=== PATIENT | male | born 1950 | race Caucasian/White ===

== ENCOUNTER 2018-09-06 11:23 | Outpatient (CLI) | payer MEDICARE | END 2018-09-06 11:24 | disposition home or self-care (01) | LOC: RT 11:23 | PROVIDERS: ATTEND Internal Medicine Cardiovascular Disease | DX: I48.91 Unspecified atrial fibrillation (principal) | CPT/HCPCS: 93005 ==

== ENCOUNTER 2019-05-05 13:43 | Outpatient (CLI) | payer MEDICARE | END 2019-05-05 13:44 | disposition short-term general hospital (02) | LOC: EMS 13:43 | PROVIDERS: ATTEND Surgery | DX: R10.13 Epigastric pain (principal); R61 Generalized hyperhidrosis; R11.10 Vomiting, unspecified | CPT/HCPCS: A0425; A0427 ==

== ENCOUNTER → 2022-08-17 | Outpatient (CLI) | payer MEDICARE | END | disposition short-term general hospital (02) | LOC: EMS 13:14 | DX: R07.9 Chest pain, unspecified (principal); R10.10 Upper abdominal pain, unspecified; I48.91 Unspecified atrial fibrillation; R11.2 Nausea with vomiting, unspecified | CPT/HCPCS: A0425; A0427 ==

== ENCOUNTER 2022-09-04 18:30 | Outpatient (CLI) | payer MEDICARE | END 2022-09-04 18:31 | disposition short-term general hospital (02) | LOC: EMS 18:30 | DX: R07.89 Other chest pain (principal); R11.2 Nausea with vomiting, unspecified; I48.91 Unspecified atrial fibrillation | CPT/HCPCS: A0425; A0427 ==

== ENCOUNTER 2022-09-14 15:30 | Outpatient (CLI) | payer MEDICARE ==
--- NOTE | 2022-09-14 17:34 | XRAY Report ---
PROCEDURE: Knee 3 View BILAT INDICATIONS: XRAY TECHNIQUE: 3 views of the bilateral knee(s) were acquired. COMPARISON: None. FINDINGS: Bones: No fractures or dislocations. No suspicious bony lesions. Moderate tricompartmental osteoart hritis in right knee is seen most notably in lateral femoral tibial compartment with joint space narr owing, subchondral sclerosis and prominent marginal osteophyte formation. Mild tricompartmental osteo arthritis in left knee is also seen. No patellar subluxation. Soft tissues: Small bilateral suprapatellar joint effusion is seen. No suspicious soft tissue calci fications. IMPRESSION: Right worse than left bilateral tricompartmental osteoarthritis and small joint effusion as above. Reviewed by: Francisco J Rangel MD on 09/14/2022 5:33 PM PDT Approved by: Francisco J Rangel MD on 09/14/2022 5:33 PM PDT Station ID: [id number]
== END 2022-09-14 15:31 | disposition home or self-care (01) ==
LOC: DI.S 15:30
PROVIDERS: ATTEND Naturopath
DX: M17.0 Bilateral primary osteoarthritis of knee (principal); M25.462 Effusion, left knee; M25.461 Effusion, right knee

== ENCOUNTER 2025-01-12 21:21 | Observation (INO) ==
[2025-01-12 21:45] LABS: BASOPHILS % (AUTO) 0.1 %; EOSINOPHILS % (AUTO) 0.1 %; HCT - HEMATOCRIT 50.3 % (42.0-52.0); HGB - HEMOGLOBIN 17.3 g/dL (14.0-18.0); LYMPHOCYTES # (AUTO) 0.9 10^3/uL (1.5-3.5); MEAN CORPUSCULAR HEMOGLOBIN 30.4 pg (27.0-31.0); MEAN CORPUSCULAR HGB CONC 34.4 g/dL (32.0-36.0); MEAN CORPUSCULAR VOLUME 88.4 fL (80.0-94.0); MEAN PLATELET VOLUME 10.8 fL (7.4-11.4); MONOCYTES # (AUTO) 0.2 10^3/uL (0.0-1.0); MONOCYTES % (AUTO) 2.1 %; NEUTROPHILS # (AUTO) 6.6 10^3/uL (1.5-6.6); NEUTROPHILS % (AUTO) 85.2 %; PLT - PLATELET COUNT 163 10^3/uL (130-450); RED BLOOD COUNT 5.69 10^6/uL (4.70-6.10); RED CELL DISTRIBUTION WIDTH 13.6 % (12.0-15.0); WHITE BLOOD COUNT 7.8 x10^3/uL (4.8-10.8)
--- NOTE | 2025-01-12 21:54 | XRAY Report ---
PROCEDURE: XR Chest 1V INDICATIONS: chest pain TECHNIQUE: One view of the chest was acquired. COMPARISON: 11/26/2024. FINDINGS: Surgical changes and devices: None. Lungs and pleura: No pleural effusions or pneumothorax. Prominent interstitial markings. No consolid ation. Left costophrenic angle is not included within the [id number]. Mediastinum: Mediastinal contours appear normal. Heart size is normal. Bones and chest wall: No suspicious bony lesions. Overlying soft tissues appear unremarkable. IMPRESSION: Prominent interstitial markings may represent edema, recommend clinical correlation. Otherwise, no ac nightmute findings. Reviewed by: Brian Osorio MD on 01/12/2025 9:53 PM PST Approved by: Brian Osorio MD on 01/12/2025 9:53 PM PST Station ID: [id number]
[2025-01-12 22:03] LABS: ALBUMIN 4.2 g/dL (3.2-5.5); BILIRUBIN,TOTAL 0.8 mg/dL (0.2-1.0); CALCIUM 9.1 mg/dL (8.5-10.3); CREATININE 0.9 mg/dL (0.6-1.3); POTASSIUM 3.8 mmol/L (3.5-4.5); TOTAL PROTEIN 6.3 g/dL (6.4-8.9)
[2025-01-12 22:05] LABS: TROPONIN I HIGH SENSITIVITY 6.8 ng/L (2.3-19.7)
--- NOTE | 2025-01-12 22:12 | ED Physician Documentation ---
PD HPI CHEST PAIN Stated complaint Stated Complaint: CHEST PX Chief complaint Chief Complaint: Cardiac Additional information Additional information: LIANGA. HPI from EMS, patient. Patient called EMS tonight due to chest pain. Patient says he was at home at rest at approximately 7:30 PM tonight when the chest pain started without inciting event. Indicates chest pain is substernal without radiation, associate with nausea and vomiting. EMS found patient to be in atrial fibrillation with rapid ventricular response at approximately 150 to 160 bpm. Patient says the pain was initially 9 on a scale of 0-10 but by the time of my HPI he says it is down to a 5. EMS administered 4 mg IV Zofran with a subsequent repeat dose, 22 mg IV diltiazem, 2 mg morphine sulfate IV with a repeat dose, 3 and 24 mg aspirin p.o., and they applied 1 inch of Nitropaste the anterior chest wall. With these interventions, the heart rate has decreased to 1 teens to 120s although he is still in atrial fibrillation on ED arrival. Patient tells me he has a history of OK as well as pericarditis. He says that the pericarditis was the result of a failed attempt at ablation (to treat the atrial fibrillation). Patient was treated and released from this emergency department twice last month for similar symptoms. Patient expresses surprise that the morphine given en route did not eliminate his pain because, per patient, a single dose of morphine typically results his symptoms entirely. The patient tells me he is not on any medications except for metoprolol which she does not take on a consistent basis. When I ask him if he is on any blood thinners such as Xarelto or Eliquis, the patient tells me that his casino dealer told him many years ago that he did not need strong blood thinner and could just take aspirin, instead. Meds/Allgy Home Medications Ambulatory Orders Medication Instructions Recorded Confirmed rivaroxaban 10 mg tablet (Xarelto) 10 mg PO DAILY PRN AFIB 09/22/17 01/13/25 aspirin 81 mg tablet,delayed 81 mg PO DAILY 01/13/25 01/13/25 release (Adult Low Dose Aspirin) Allergies Allergies Allergy/AdvReac Type Severity Reaction Status Date / Time No Known Drug Allergies Allergy Verified 01/12/25 21:27 [facility] Active Problems All Active Problems (Updated 01/13/25 @ 04:47 by Shira Carreon, RN, BSN) Atrial fibrillation with RVR (Acute) Chest pain (Acute) Vomiting (Acute) Chest pain (Acute) Osteoarthritis of knees, bilateral (Acute) Social History Social History Smoking Status: Never smoker If you are a former smoker, when did you quit? (Date/Year): n/a Number of Years Smoked: 0 How many cigarettes a day do you smoke? (20 cigarettes=1 Pk): 0 Second hand tobacco smoke exposure: No Do you dip or chew tobacco?: No Do you vape?: No Patient requests smoking cessation consult: No Initiate information on smoking cessation: No Living arrangement: At home Living Condition: With spouse/s.o. and With family Relationship: Level: Independent Do you feel safe in your home environment?: Yes Suffered physical, verbal, emotional, or financial abuse?: No Substance Use: cannabis (any form) POLST Patient has POLST: No POLST Status: DNR Exam Constitutional normal general appearance, no apparent distress and alert Respiratory breath sounds equal bilaterally, clear to auscultation bilaterally, no wheezes and no rales Cardiovascular heart rate abnormal (tachycardic), rhythm abnormal (irregular) and no murmur Gastrointestinal abdomen soft to palpation, nontender to palpation, nondistended and normoactive bowel sounds Psychiatry mental status grossly normal and oriented x3 Results Vitals Vitals: Vital Signs - 24 hr 01/12/25 21:25 01/12/25 21:27 01/12/25 23:00 Temperature 37.4 C Temperature Source Temporal Artery Scan Pulse Rate 91 97 Respiratory Rate 20 16 Blood Pressure 149/96 H 108/66 O2 Saturation 97 98 O2 Source Room air Room air If not protocol: Oxygen Flow, liters/minute Pain Intensity 7 7 0 01/13/25 00:00 01/13/25 00:53 01/13/25 01:04 Temperature Temperature Source Pulse Rate 105 H 175 H 138 H Respiratory Rate 19 18 20 Blood Pressure 110/74 133/90 H 133/90 H O2 Saturation 98 98 96 O2 Source Room air Nasal cannula Nasal cannula If not protocol: Oxygen Flow, liters/minute 2 2 Pain Intensity 0 2 01/13/25 01:28 01/13/25 01:35 01/13/25 01:44 Temperature Temperature Source Pulse Rate 147 H 111 H Respiratory Rate 24 20 Blood Pressure 140/70 H 154/121 H O2 Saturation 96 97 O2 Source Room air Room air If not protocol: Oxygen Flow, liters/minute Pain Intensity 9 9 9 01/13/25 02:00 01/13/25 02:32 01/13/25 03:00 Temperature Temperature Source Pulse Rate 108 H 100 Respiratory Rate 19 19 Blood Pressure 102/58 L 109/78 O2 Saturation 98 98 O2 Source Room air Room air If not protocol: Oxygen Flow, liters/minute Pain Intensity 0 8 0 Oxygen O2 Source Room air EKG (time done) 21:26: EKG releavant findings:: EKG personally interpreted by author of this note. Relevant findings are: Rate: Rate (enter#) (99) Rhythm: Atrial fibrillation [place]: LAD Intervals: Prolonged QT Ischemia: Normal ST segments Other comments: Other comments (PVCs) Labs Labs: Laboratory Tests 01/12/25 01/13/25 21:40 01:02 WBC 7.8 RBC 5.69 Hgb 17.3 Hct 50.3 MCV 88.4 MCH 30.4 MCHC 34.4 RDW 13.6 Plt Count 163 MPV 10.8 Neut # (Auto) 6.6 Lymph # (Auto) 0.9 L [place] # (Auto) 0.2 Eos # (Auto) 0.0 Baso # (Auto) 0.0 Absolute Nucleated RBC 0.00 Nucleated RBC % 0.0 Sodium 137 Potassium 3.8 Chloride 103 Carbon Dioxide 21 Anion Gap 13.0 BUN 23 H Creatinine 0.9 Estimated GFR (MDRD) 83 L Glucose 134 H Calcium 9.1 Total Bilirubin 0.8 AST 19 ALT 14 Alkaline Phosphatase 50 Troponin I High Sens 6.8 9.4 Total Protein 6.3 L Albumin 4.2 Globulin 2.1 Albumin/Globulin Ratio 2.0 Lipase 22 Rads (name of study) CXR: Relevant Findings:: Prelim report reviewed and See rad report Interpretation: prominent interstitial markings, similar to previous (11/26/24) PD Medical Decision Making ED course Complexity details: reviewed old records, reviewed results, considered differential and d/w patient ED course: No concerning nor diagnostic findings on blood tests: Normal CBC (with insignificant exception of low lymphocytes), normal ER abdominal panel with insignificant exception of mildly elevated BUN (23). Normal high-sensitivity troponin (6.8).Patient remains in atrial fibrillation throughout ED stay but rate significantly improved with the interventions noted in HPI undertaken by EMS en route to the ED, and without further intervention, his rate continued to improve and was mostly in the 90s to 100s bpm range. Normotensive during ED stay. I discussed results with patient. After further discussion, it is still unclear to me why the patient is not on a strong blood thinning medication (such as warfarin or DOAC). The patient was telling me that he is asymptomatic and comfortable with DC home and thus discharge papers were being prepared and his ride was on the way to pick him up when he ambulated to the bathroom in the emergency department. Upon returning back to his room, he indicated to me that he is again having significant substernal chest pain with nausea. He is put back on the awake overnight monitor and found to be again in A-fib with RVR, heart rates in the 150s to as high as 170s beats per minute. At this point, a Cardizem drip is initiated and I discussed the case with the hernandez telehealth practitioner on duty who accepts patient to hospitalist service [facility]. For patient's chest pain, I ordered 5 mg IV morphine and he reports no relief with this intervention. I then then ordered 1 mg IV Dilaudid along with 25 mg IV Phenergan for his nausea and he reports resolution of his chest pain and nausea with these medications. His heart rate improved to 90s-100s with up-titration of the cardizem drip. A second hs-cTn is again WNL Discharge Plan Discharge Patient Disposition: [facility] DC/Xfer Condition: Stable Clinical Impression: Atrial fibrillation with RVR Chest pain Qualifiers: Chest pain type: unspecified Qualified Code(s): R07.9 - Chest pain, unspecified Interventions: ED Admission Assessment Last Done: 01/13/25 04:46
[2025-01-13] MEDS ORDERED: diltiaZEM INJ 5 MG/ML VIAL ONE (01:15)
[2025-01-13] MEDS: diltiaZEM INJ 125 MG in DEXTROSE 5% 100 ML IV SCH (01:23)
[2025-01-13] MEDS: MORPHINE 10 MG/ML VIAL IVP STA (01:35)
[2025-01-13] MEDS ORDERED: PROMETHAZINE 25 MG/1 ML VIAL ONE (01:51)
[2025-01-13] MEDS: HYDROmorphone 1 MG/ML SYRINGE IVP STA (01:57)
[2025-01-13] MEDS: PROMETHAZINE INJ 25 MG in SODIUM CHLORIDE 0.9% 50 ML IV STA (02:03)
[2025-01-13] MEDS ORDERED: iohexoL-300 100 ML VIAL ONE (03:39)
[2025-01-13] MEDS ORDERED: ACETAMINOPHEN 325 MG TABLET PO PRN (03:41)
[2025-01-13] MEDS ORDERED: PROCHLORPERAZINE 10 MG/2 ML VIAL IVP PRN (03:41)
[2025-01-13] MEDS ORDERED: oxyCODONE 5 MG TABLET PO PRN (03:41)
[2025-01-13] MEDS ORDERED: ONDANSETRON 4 MG/2 ML VIAL IVP PRN (03:41)
[2025-01-13] MEDS ORDERED: ONDANSETRON ODT 4 MG TABLET TL PRN (03:41)
[2025-01-13] MEDS ORDERED: HYDROmorphone 0.5 MG/0.5 ML SYRINGE IVP PRN (03:41)
--- NOTE | 2025-01-13 03:57 | HISTORY & PHYSICAL EXAMINATION ---
Chief Complaint Chief Complaint Chief Complaint: CP History of Present Illness Admitted From Admitted From:: ER History Obtained From Records Reviewed: Yes History obtained from: Pt, pt's daughter, staff, chart Exam Limitations: Virtual exam History of Present Illness HPI Comment/Other: H&P was conducted via video remotely, using [employer] Cart. [place] is in [place] Physician [place] in [place]. Pt's daughter Shahnaz is at bedside. 74 yo M wit PMH of PAF-not on AC, Pancreatitis per chart 2017, DJD presented to the ER with c/o 1 day h/o epigastric pain, N/V, palpitations. Pt was dx'd with AFib 30 years ago. 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 He has continued to have PAF with occasional episodes of RVR, usually every 2 years. His Reservation Manager agreed to let him stop his Xarelto and take daily ASA a couple of years ago. Pt has had 3 ER visits in the past 8 weeks for the same complaints. Today, he felt fine when he woke up. He had a bite of maori toast and some green tea, then had a sudden onset of epigastric pain and swelling with subsequent nausea, vomiting. He thinks he has had about 30-50 emeses today, non-bloody. He has not been able to tolerate PO since this AM. He then felt palpitations and SSCP with no radiation. +anxiety, but this came after the other symptoms. No BM change. No urine change. No F/C, No SOB, cough. Pts granddaughter works as EMT. When EMS arrived, his HR was 120s-140s. Pt was given Zofran x 2 doses, MSO4 x 2 doses, Cardizem x 1 dose. In the ER, HR 115 at first, then increased up to 150s after pt got up to use the bathroom then had sudden worsening of symptoms. Trop neg x 2 CXR: Prominent interstitial markings may represent edema, recommend clinical correlation. Otherwise, no acute findings. EKG: not available in chart yet for review; per ER Provider: AFib with RVR, no STTw changes. Pt was given MSO4, Zofran, ASA, Dilaudid, Phenargan in the ER. Review of Systems Status of ROS: 10 or more systems reviewed and unremarkable except as noted in history and below PFSH Active Problems All Active Problems (Updated 01/13/25 @ 01:11 by Phi Montana MD) Atrial fibrillation with RVR (Acute) Chest pain (Acute) Vomiting (Acute) Chest pain (Acute) Osteoarthritis of knees, bilateral (Acute) Social History Social History Smoking Status: Former smoker If you are a former smoker, when did you quit? (Date/Year): 1986 Number of Years Smoked: 10 How many cigarettes a day do you smoke? (20 cigarettes=1 Pk): 20 Do you dip or chew tobacco?: No Living arrangement: At home Living Condition: With spouse/s.o. and With family Relationship: Do you feel safe in your home environment?: Yes Suffered physical, verbal, emotional, or financial abuse?: No POLST Patient has POLST: No POLST Status: DNR Meds/Allgy Home Medications Ambulatory Orders Medication Instructions Recorded Confirmed rivaroxaban 10 mg tablet (Xarelto) 10 mg PO DAILY PRN AFIB 09/22/17 01/13/25 aspirin 81 mg tablet,delayed 81 mg PO DAILY 01/13/25 01/13/25 release (Adult Low Dose Aspirin) Allergies Allergies Allergy/AdvReac Type Severity Reaction Status Date / Time No Known Drug Allergies Allergy Verified 01/12/25 21:27 Exam Constitutional normal general appearance and no apparent distress HENMT normocephalic Eyes EOMs intact bilaterally and no scleral icterus Dry MM Respiratory cart stethoscope not working; per ER Provider: CTA B/L Cardiovascular cart stethoscope not working; per ER Provider: Irreg Irreg, Tachy Gastrointestinal per ER Provider: non-distended, NT, Soft Extremities per ER Provider: moves all extrem, no edema Neurology A+Ox3, normal speech, cooperative; per ER Provider: NFD Conclusion/Plan Problem List (1) Atrial fibrillation with RVR: Plan AFib with RVR H/o PAF-not on AC Chest pain Palpitations -When EMS arrived, his HR was 120s-140s. Pt was given Zofran x 2 doses, MSO4 x 2 doses, Cardizem x 1 dose. -In the ER, HR 115 at first, then increased up to 150s after pt got up to use the bathroom then had sudden worsening of symptoms. -Trop neg x 2 -CXR: Prominent interstitial markings may represent edema, recommend clinical correlation. Otherwise, no acute findings. -EKG: not available in chart yet for review; per ER Provider: AFib with RVR, no STTw changes. -Pt was given MSO4, Zofran, ASA, Dilaudid, Phenargan in the ER. -admit to Obs/ICU -continue Cardizem drip with titration -continue to trend Trop -pt not on AC; consider restarting once abdo pain etiology further understood -pt also not on rate-controlling medications; will start Metoprolol -hold ASA for now d/t epigastric pain -EKG PRN CP -Echo ordered -check TSH Abdominal Pain Intractable N/V Decreased PO intake H/o Pancreatitis -CT abdo ordered stat -amylase, lipase ordered -IVF -clear liquid diet -anti-emetics PRN -pain control VTE Prophylaxis: Hep SQ Code Status: D/W pt; he is DNR/DNI and has a POLST in the chart. ~Dipika White MD Hospitalist Lab Results Lab results reviewed: Yes 01/13/25 03:57 01/12/25 21:40
[2025-01-13 04:02] LABS: BASOPHILS % (AUTO) 0.1 %; EOSINOPHILS % (AUTO) 0.1 %; HCT - HEMATOCRIT 46.5 % (42.0-52.0); HGB - HEMOGLOBIN 15.9 g/dL (14.0-18.0); LYMPHOCYTES # (AUTO) 0.8 10^3/uL (1.5-3.5); LYMPHOCYTES % (AUTO) 10.7 %; MEAN CORPUSCULAR HEMOGLOBIN 30.3 pg (27.0-31.0); MEAN CORPUSCULAR HGB CONC 34.2 g/dL (32.0-36.0); MEAN CORPUSCULAR VOLUME 88.7 fL (80.0-94.0); MEAN PLATELET VOLUME 10.9 fL (7.4-11.4); MONOCYTES # (AUTO) 0.3 10^3/uL (0.0-1.0); MONOCYTES % (AUTO) 4.1 %; NEUTROPHILS # (AUTO) 6.4 10^3/uL (1.5-6.6); NEUTROPHILS % (AUTO) 84.3 %; PLT - PLATELET COUNT 152 10^3/uL (130-450); RED BLOOD COUNT 5.24 10^6/uL (4.70-6.10); RED CELL DISTRIBUTION WIDTH 13.6 % (12.0-15.0); WHITE BLOOD COUNT 7.6 x10^3/uL (4.8-10.8)
[2025-01-13 04:14] LABS: AMYLASE 39 U/L (28-100)
[2025-01-13 04:19] LABS: ALBUMIN/GLOBULIN RATIO 2.1 (1.0-2.2); BILIRUBIN,TOTAL 0.8 mg/dL (0.2-1.0); CALCIUM 8.7 mg/dL (8.5-10.3); CREATININE 0.8 mg/dL (0.6-1.3); TOTAL PROTEIN 5.9 g/dL (6.4-8.9)
[2025-01-13 04:20] LABS: LIPASE 23 U/L (11-82)
[2025-01-13] MEDS: iohexoL-300 100 ML VIAL IVP ONE (04:48)
[2025-01-13] MEDS: LACTATED RINGERS 1,000 ML IV SCH (05:33)
[2025-01-13] MEDS: SODIUM CHLORIDE FLUSH 0.9% 10 ML SYRINGE IVP PRN (06:39)
[2025-01-13] MEDS: PANTOPRAZOLE 40 MG VIAL IVP SCH (06:39)
[2025-01-13 07:18] LABS: PHOSPHORUS 3.2 mg/dL (2.5-5.0)
--- NOTE | 2025-01-13 08:28 | CT Report ---
PROCEDURE: CT Abdomen/Pelvis W INDICATIONS: Abdominal pain CONTRAST: 100 MLOMNI 300 TECHNIQUE: After the administration of intravenous contrast, a CT scan of the abdomen and pelvis was performed. Images were recorded and evaluated at appropriate window settings. Reformats: coronal and sagittal. F or radiation dose reduction, the following was used: automated exposure control, adjustment of mA and /or kV according to patient size. COMPARISON: None. FINDINGS: Image quality: Diagnostic. Lower chest: Dependent atelectasis in posterior aspect of bilateral lung bases are seen. Heart size i s enlarged, no pericardial effusion. Liver: No solid mass. Mild to moderate hepatic steatosis. Gallbladder: No radiopaque stones or wall thickening. Biliary tree: No intrahepatic or extrahepatic dilation, accounting for age. Spleen: No splenomegaly. Pancreas: No pancreatic ductal dilation. Adrenals: No adrenal nodule. Kidneys and ureters: No hydronephrosis. No renal cystic lesion which requires follow up. No solid mas s. Stomach, bowel and peritoneum: No gastric or small bowel dilation. No abnormal wall thickening. No pa thologic free fluid. Appendix is visualized and is within normal limits. No peritoneal free air. Lymph nodes: No central or retroperitoneal adenopathy. Vessels: No infrarenal aortic aneurysm. Patent portal vein. PELVIS Reproductive organs: Unremarkable. Bladder: No abnormal wall thickening, accounting for underdistention. Pelvic lymph nodes: No pelvic adenopathy by size criteria. Bones: No aggressive osseous abnormality. Other: No significant ventral or inguinal hernia. IMPRESSION: 1. No acute inflammatory process is seen in abdomen or pelvis. No free fluid of free air. 2. Incidental findings as above. Findings are concordant with preliminary interpretation provided by [facility]. Reviewed by: Francisco J Rangel MD on 01/13/2025 8:[address] [facility] Approved by: Francisco J Rangel MD on 01/13/2025 8:27 AM PST Station ID: [id number]
[2025-01-13] MEDS: HEPARIN 5,000 UNIT/ML VIAL SUBQ SCH (08:50)
[2025-01-13] MEDS: SODIUM CHLORIDE FLUSH 0.9% 10 ML SYRINGE IVP SCH (08:51)
[2025-01-13] MEDS: METOPROLOL SUCCINATE 25 MG TABLET PO SCH (08:51)
[2025-01-13 12:05] VITALS: TEMP 97.7
--- NOTE | 2025-01-13 12:30 | PHARMACY PROGRESS NOTE ---
Best Possible Medication History Admit Date and Time: 01/13/25 0341 Home Medications Medication Instructions Recorded Confirmed Type rivaroxaban 10 mg tablet (Xarelto) 10 mg PO DAILY PRN AFIB 09/22/17 01/13/25 History Processed by: Pharmacy Medication History completed: Yes Patient Interview: Completed Secondary Source(s): Pharmacy records and Insurance records [facility] Statement: Patient states he has not been taking any medications at home and more recently stopped taking xarelto. As the person ultimately responsible for medication therapy, providers are able to order a medication from an existing home medication list in [facility] via the "Reconcile Routine" prior to Confirmation of that medication by instructional support specialist. Such practice is discouraged except when the physician, in their clinical judgment, deems that a medical need exists for a medication without regard to previous use.
--- NOTE | 2025-01-13 14:01 | Discharge Summary ---
<Statement entered by Alfredo Watts MD - 01/13/25 15:12> I have seen and examined the patient personally and agree with the assessment and plan with the following addition. Patient's blood pressure after giving metoprolol today dropped to 80s over 60s however the patient states his blood pressure has always been low and he felt asymptomatic. He was given a dose ofMetoprolol succinate 25 mg p.o. He will be discharged on metoprolol tartrate 12.5 mg twice daily with instructions to start the first dose tomorrow to avoid further hypotension.He also could not decide if he wanted to start anticoagulation but he will be given a prescription for Xarelto and he will discuss this further with his diamond powder technician and PCP. Discharge Summary Admit Date: 01/13/25 Discharge Date: 01/13/25 Discharging Provider: Alfredo Watts MD Code Status: Do Not Attempt Resuscitation DIAGNOSES Admission Diagnoses: Atrial Fibrillation with Rapid Ventricular Rate Chest pain Vomiting Discharge Diagnoses with Status of Each Condition: Atrial Fibrillation with Rapid Ventricular Rate - rate controlled on Metoprolol Chest pain - resolved Vomiting - resolved HPI History of Present Illness: HPI Comment/Other: H&P was conducted via video remotely, using [employer]. [place] in [place] Pt's daughter Shahnaz is at bedside. 74 yo M [facility] PMH of PAF-not on AC, Pancreatitis per chart 2017, DJD presented to the ER with c/o 1 day h/o epigastric pain, N/V, palpitations. Pt was dx'd with AFib 30 years ago. 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 He has continued to have PAF with occasional episodes of RVR, usually every 2 years. His Child Day Care Teacher agreed to let him stop his Xarelto and take daily ASA a couple of years ago. Pt has had 3 ER visits in the past 8 weeks for the same complaints. Today, he felt fine when he woke up. He had a bite of [place] toast and some green tea, then had a sudden onset of epigastric pain and swelling with subsequent nausea, vomiting. He thinks he has had about 30-50 emeses today, non-bloody. He has not been able to tolerate PO since this AM. He then felt palpitations and SSCP with no radiation. +anxiety, but this came after the other symptoms. No BM change. No urine change. No F/C, No SOB, cough. Pts granddaughter works as EMT. When EMS arrived, his HR was 120s-140s. Pt was given Zofran x 2 doses, MSO4 x 2 doses, Cardizem x 1 dose. In the ER, HR 115 at first, then increased up to 150s after pt got up to use the bathroom then had sudden worsening of symptoms. Trop neg x 2 CXR: Prominent interstitial markings may represent edema, recommend clinical correlation. Otherwise, no acute findings. EKG: not available in chart yet for review; per ER Provider: AFib with RVR, no STTw changes. Pt was given MSO4, Zofran, ASA, Dilaudid, Phenargan in the ER. HOSPITAL COURSE Hospital Course: Patient was seen in ED with AFib with RvR, vomiting, and chest pain. He was administerd magnesium, zofran, aspirin, dilauded, phenargan, and cardizem drip. Rate was controlled on cardizem drip, which was subsequently discontinued and the patient has since been rate controlled on metoprolol. High sensitivity Troponin I was within normal limits and there were no ischemic changes on EKG. Chest pain description is on trend with patient's recurrent epigastric pain. Chest pain and nausea/vomiting have fully resolved, and patient has tolerated PO food and liquids while in observation. Patient remains in AFib with controlled rate and will be discharged on Xeralto and Metoprolol. ALLERGIES Allergies Allergy/AdvReac Type Severity Reaction Status Date / Time No Known Drug Allergies Allergy Verified 01/12/25 21:27 MEDICATIONS Ambulatory Orders Medication Instructions Recorded Confirmed dabigatran etexilate 150 mg 150 mg PO BID #60 caps 01/13/25 capsule (Pradaxa) metoprolol tartrate 25 mg tablet 12.5 mg (1/2 x 25 mg) PO BID #30 01/13/25 tabs PHYSICAL EXAM AT DISCHARGE General Appearance: positive No acute distress and Alert Eyes Bilateral: positive Normal inspection ENT: positive ENT inspection nml Neck: positive Nml inspection Respiratory: positive Chest non-tender and No respiratory distress Cardiovascular: positive Irregularly irregular; negative Tachycardia Abdomen: positive Non-tender Skin: positive Color nml Extremities: positive Non-tender Neurologic/Psychiatric: positive Oriented x3, CN's nml (2-12), Motor nml, Sensation nml and Mood/affect nml LABS 01/13/25 03:57 01/13/25 03:57 DIAGNOSTIC IMAGING Diagnostic Imaging Results: Final report reviewed Diagnostic Imaging Results Comments: CT Abd/Pelvis: 1. No acute inflammatory process is seen in abdomen or pelvis. No free fluid of free air. XR Chest: Prominent interstitial markings may represent edema, recommend clinical correlation. Otherwise, no acute findings. FOLLOW UP Follow Up: Please follow up with your primary care provider and reestablish care with a Child Day Care Teacher. Your heart condition will require monitoring by a heart doctor with regular check ins. TIME SPENT Time Spent in Discharge (Minutes): 20 Discharge Plan Discharge Patient Disposition: 01 Home, Self Care Condition: Stable Medically Cleared Date:: 01/13/25 Prescriptions: New metoprolol tartrate 25 mg tablet 12.5 mg PO BID Qty: 30 0RF dabigatran etexilate [Pradaxa] 150 mg capsule 150 mg PO BID Qty: 60 0RF Discontinued Xarelto 10 MG tablet 10 mg PO DAILY PRN (Reason: AFIB) Diet: Cardiac Interventions: Discharge Last Done: 01/13/25 14:52 Discharge Checklist - Nursing Last Done: 01/13/25 14:52 Health Concerns: You were seen in the hospital because of chest pain, vomiting, and a fast, irregular heart rate. We gave you medications for pain and to slow down and control your heart rate. Your symptoms have resolved but you remain in Atrial Fibrillation (irregular heart beat). It is important that you take your prescribed medication, Metoprolol, as ordered to help to control your heart's speed and rhythm. Atrial fibrillation puts you at a higher risk of complications including stroke. Because of this, we have re-started you on a medication to prevent blood clotting (Pradaxa). Please follow up with your primary care provider and diamond powder technician to manage your chronic heart condition and medications. Print Language: Paragu[place] Patient Instructions: ED Afib, ED Chest Pain Atypical Unkn Cause Stand Alone Forms: PCP List
[2025-01-13 15:48] VITALS: BP 104/71; O2SAT 92
== END 2025-01-13 16:01 | disposition home or self-care (01) ==
LOC: ED 21:21 → ICU 21:21
PROVIDERS: ADMIT Internal Medicine; ATTEND Internal Medicine
DX: F41.9 Anxiety disorder, unspecified; R11.2 Nausea with vomiting, unspecified; Z66 Do not resuscitate; I48.0 Paroxysmal atrial fibrillation; I95.9 Hypotension, unspecified